=== PATIENT | male | born 1990 | race Caucasian/White ===

== ENCOUNTER 2017-06-02 19:11 | Emergency (ER) | payer BC ==
[~2017-06-02] VITALS: Ht 188 cm; Wt 85.7 kg
[2017-06-02 20:45] VITALS: BP 122/96
== END 2017-06-02 20:45 | disposition home or self-care (01) ==
LOC: ED 19:11
DX: S01.01XA Laceration without foreign body of scalp, initial encounter (principal); X58.XXXA Exposure to other specified factors, initial encounter; Y93.11 Activity, swimming; Y92.34 Swimming pool (public) as the place of occurrence of the external cause; Y99.8 Other external cause status
CPT/HCPCS: J2001